=== PATIENT | male | born 1960 | race Caucasian/White ===

== ENCOUNTER 2017-01-28 08:30 | Day surgery (SDC) | payer BC ==
--- NOTE | 2017-01-14 16:24 | P.GSHP ---
History of Present Illness H&P Date: 01/14/17 Chief Complaint: Rectal bleeding patient with complaints of intermittent rectal bleeding. Denies diarrhea or constipation. Also has some chronic pain at a right angle hernia site. No nausea or vomiting. No known hemorrhoids. No prior colonoscopy. Surgical - Exam Physical exam: General: Well-developed, well-nourished HEENT: Normocephalic, sclerae nonicteric Abdomen: Nontender, nondistended, very small reducible umbilical hernia, mild tenderness right groin but no hernia noted Extremities: No edema Neuro: Alert and oriented Assessment and Plan (1) Rectal bleeding Narrative/Plan: Will proceed with colonoscopy on 714. Risks of bleeding and perforation discussed. Status: Acute
[2017-01-26 11:04] VITALS: BMI 32.5
[2017-01-28 08:50] VITALS: RESP 16; TEMP 97.9
[2017-01-28] MEDS: LACTATED RINGERS 1,000 ML IV SCH ×2 (08:58→09:08)
[2017-01-28] MEDS ORDERED: ONDANSETRON 4 MG/2 ML VIAL IVP STA (09:01)
[2017-01-28] MEDS ORDERED: ONDANSETRON 4 MG/2 ML VIAL IVP ONE (09:03)
[2017-01-28] MEDS ORDERED: fentaNYL (PF) 50 MCG/ML 2 ML AMP ONE (09:10)
[2017-01-28] MEDS ORDERED: MIDAZOLAM 2 MG/2 ML VIAL ONE (09:10)
[2017-01-28] MEDS ORDERED: PROPOFOL 10 MG/ML 20 ML VIAL IV ONE (09:10)
--- NOTE | 2017-01-28 09:32 | P.PCN ---
Date of Procedure: 01/28/17 Preoperative Diagnosis: Postoperative Diagnosis: Procedure(s) Performed: PREOPERATIVE DIAGNOSIS: Rectal bleeding POSTOPERATIVE DIAGNOSIS: Normal colon PROCEDURE: Colonoscopy ANESTHESIA: MAC SURGEON: Sebastian Najera M.D. SPECIMENS: None ENDOSCOPIC PROCEDURE: The patient was placed on the endoscopy table in the left decubitus position. The Olympus colonoscope was inserted into the anus and passed under direct visualization to the base of the cecum. The appendiceal orifice was visualized. From that point the scope was slowly withdrawn inspecting all surfaces carefully. There were no neoplastic inflammatory or polypoid lesions throughout the cecum, ascending, transverse, descending, sigmoid and rectum. Mild tortuosity was noted. There was no diverticulosis noted. Digital rectal examination was normal. The patient was taken to the recovery room in stable condition per anesthesia guidelines. RECOMMENDATIONS: Bello franklin. Follow-up colonoscopy in 10 years Implants: Indications for Procedure: Operative Findings: Description of Procedure:
[2017-01-28 09:49] VITALS: BP 155/89; PULSE 72
== END 2017-01-28 10:11 | disposition home or self-care (01) ==
LOC: ORWHC2ENDO 08:30
PROVIDERS: ATTEND Surgery
DX: K62.5 Hemorrhage of anus and rectum (principal); Q43.8 Other specified congenital malformations of intestine; K42.9 Umbilical hernia without obstruction or gangrene
CPT/HCPCS: 45378; J2250; J2405; J3010; J2704

== ENCOUNTER → 2018-11-16 | Outpatient (CLI) | payer BC ==
--- NOTE | 2018-11-16 16:03 | XR ---
EXAMINATION TYPE: XR chest 2V DATE OF EXAM: 11/16/2018 COMPARISON: None INDICATION: Cough TECHNIQUE: Frontal and lateral views of the chest are obtained. FINDINGS: The heart size is normal. The pulmonary vasculature is normal. The lungs are clear. IMPRESSION: 1. No acute pulmonary process.
== END | disposition home or self-care (01) ==
LOC: RADXRMAIN 13:12
PROVIDERS: ATTEND Family Medicine
DX: R05 Cough (principal)
CPT/HCPCS: 71046

== ENCOUNTER → 2021-01-21 | Outpatient (CLI) | payer BC ==
--- NOTE | 2021-01-22 08:30 | XR ---
EXAMINATION TYPE: XR cervical spine comp DATE OF EXAM: 01/21/2021 COMPARISON: None HISTORY: 60-year-old male with pain TECHNIQUE: 5 views FINDINGS: Mild facet and uncovertebral joint arthropathy. On the right, at this results in moderate bony neurof oraminal narrowing at C3-C4 and mild at C5-C6. No predental space widening or prevertebral soft tissu e swelling. Minimal disc interspace narrowing and disc bulging C6-C7. Alignment is maintained. Normal odontoid view. IMPRESSION: Mild facet and uncovertebral joint arthropathy. Mild degenerative disc disease C6-C7. There appears t o be a moderate bony neuroforaminal narrowing on the right at C3-C4 and mild at C5-C6.
== END | disposition home or self-care (01) ==
LOC: RADXRMAIN 16:32
PROVIDERS: ATTEND Family Medicine
DX: M50.323 Other cervical disc degeneration at C6-C7 level (principal); M47.812 Spondylosis without myelopathy or radiculopathy, cervical region; M99.71 Connective tissue and disc stenosis of intervertebral foramina of cervical region
CPT/HCPCS: 72050

== ENCOUNTER 2021-02-02 12:08 | Day surgery (SDC) | payer BC ==
[2021-01-30 11:07] VITALS: BMI 30.9
[~2021-02-02 12:08] MED LIST: LACTATED RINGERS 1,000 ML IV SCH; LIDOCAINE 1% (10MG/ML) FOR IV START INTRADERMA PRN
[2021-02-02 12:27] VITALS: TEMP 98.1
[2021-02-02] MEDS ORDERED: LIDOCAINE 1% INJ 10MG/ML (20 ML MDV) ONE (12:59)
[2021-02-02] MEDS ORDERED: PROPOFOL 10 MG/ML 20 ML VIAL IV ONE (12:59)
--- NOTE | 2021-02-02 13:05 | P.GSHP ---
History of Present Illness H&P Date: 02/02/21 Chief Complaint: Dysphagia This a 60-year-old male complaints of dysphagia. Patient presents today for EGD. Past Medical History Past Medical History: Hypertension Additional Past Medical History / Comment(s): "pain in stomach,pain and bloating with eating,hard to breath at times",distended abdomen,hard to touch, hx HAD EPISODE OF BLOOD IN STOOL "quite awhile ago" History of Any Multi-Drug Resistant Organisms: None Reported Past Surgical History: Orthopedic Surgery Additional Past Surgical History / Comment(s): HIATAL HERNIA REPAIR,inguianl hernia repair,. ROTATOR CUFF REPAIR BILAT. LT ELBOW SX Past Anesthesia/Blood Transfusion Reactions: No Reported Reaction Smoking Status: Never smoker - Past Family History Mother Family Medical History: No Reported History Medications and Allergies Home Medications Medication Instructions Recorded Confirmed Type Cyanocobalamin (Vitamin B-12) 3,000 mcg PO DAILY 01/30/21 02/02/21 History [Vitamin B-12] Ibuprofen 600 mg PO Q6H PRN 01/30/21 01/30/21 History Losartan Potassium 50 mg PO DAILY 01/30/21 02/02/21 History Multivitamins, Thera [Multivitamin 1 tab PO DAILY 01/30/21 01/30/21 History (formulary)] Tadalafil [Cialis] 20 mg PO DAILY PRN 01/30/21 02/02/21 History Allergies Allergy/AdvReac Type Severity Reaction Status Date / Time bee venom protein (honey bee) Allergy Swelling Verified 01/30/21 10:56 Surgical - Exam Vital Signs Temp Pulse Resp BP Pulse Ox 98.1 F 79 16 161/95 96 02/02/21 12:25 02/02/21 12:25 02/02/21 12:25 02/02/21 12:25 02/02/21 12:25 - General well developed, well nourished, no distress - Eyes PERRL - ENT normal pinna - Neck no masses - Respiratory normal expansion - Cardiovascular Rhythm: regular - Abdomen Abdomen: soft Assessment and Plan Assessment: Dysphagia. We'll perform EGD.
--- NOTE | 2021-02-02 13:12 | P.OP ---
Date of Procedure: 02/02/21 Preoperative Diagnosis: Dysphagia Postoperative Diagnosis: Antral gastritis Procedure(s) Performed: EGD Anesthesia: MAC Surgeon: Ash Ruiz Pathology: other (Antrum) Condition: stable Disposition: PACU Description of Procedure: Patient's placed on the endoscopy table in the lateral position. He received IV sedation. Gastroscope placed oropharynx passed in the esophagus into the stomach. Scope was then placed through the pylorus. The first and second portion of duodenum appeared normal. Scope was then brought back the antrum this was mildly inflamed. A biopsies performed. Scope was unretroflexed and remainder of the stomach appeared normal. There is no significant hiatal hernia. The GE junction was at 38 cm. The distal esophagus. Normal. The proximal esophagus appeared normal. Scope was withdrawn for patient.
[2021-02-02 13:36] VITALS: BP 131/79; PULSE 81; RESP 16
== END 2021-02-02 14:35 | disposition home or self-care (01) ==
LOC: ORWHC2ENDO 12:08
PROVIDERS: ATTEND Surgery
DX: R13.10 Dysphagia, unspecified (principal); K29.50 Unspecified chronic gastritis without bleeding; I10 Essential (primary) hypertension; Z98.890 Other specified postprocedural states; Z79.899 Other long term (current) drug therapy; Z91.030 Bee allergy status
CPT/HCPCS: 88305; 43239; J2001; J2704

== ENCOUNTER → 2021-02-05 | Outpatient (CLI) | payer BC ==
--- NOTE | 2021-02-05 11:13 | FL ---
EXAMINATION TYPE: FL barium swallow DATE OF EXAM: 02/05/2021 CLINICAL HISTORY: Dysphasia, back pain TECHNIQUE: A double contrast esophagram is performed utilizing air and barium. A total of 51 second s of fluoroscopic time was utilized during procedure and 52 images obtained. COMPARISON: None FINDINGS: There is delayed emptying of the esophagus into the stomach. No evidence of hiatal hernia o r stricture noted. No significant gastroesophageal reflux was seen during real time performance of th is study. IMPRESSION: There is delayed emptying of barium from the esophagus into the stomach without definite obstruction seen.
== END | disposition home or self-care (01) ==
LOC: RADUSWWP 09:00
PROVIDERS: ATTEND Surgery
DX: K30 Functional dyspepsia (principal)
CPT/HCPCS: 74220

== ENCOUNTER 2024-04-03 08:01 | Day surgery (SDC) | payer BC ==
[2024-04-02 10:12] VITALS: BMI 32.5
[2024-04-03 08:31] VITALS: TEMP 97.8
[2024-04-03] MEDS: LACTATED RINGERS 1,000 ML IV SCH (08:38)
[2024-04-03] MEDS: LACTATED RINGERS 1,000 ML IV ONE (08:40)
[2024-04-03] MEDS ORDERED: PROPOFOL 10 MG/ML 20 ML VIAL IV ONE (09:18)
[2024-04-03] MEDS ORDERED: LIDOCAINE 1% INJ 10MG/ML (20 ML MDV) ONE (09:18)
--- NOTE | 2024-04-03 09:40 | P.PCN ---
Date of Procedure: 04/03/24 Procedure(s) Performed: PREOPERATIVE DIAGNOSIS: Epigastric pain, bloating, screening POSTOPERATIVE DIAGNOSIS: Mild gastritis, normal colon PROCEDURE: 1. EGD with biopsy 2. Colonoscopy ANESTHESIA: MAC SURGEON: Sebastian Najera M.D. SPECIMENS: Antrum ENDOSCOPIC PROCEDURE: The patient was on the endoscopy table in the left decubitus position. The Olympus gastroscope was inserted into the oropharynx and passed under direct visualization to the region of the third portion of the duodenum. From that point the scope was slowly withdrawn inspecting all surfaces carefully. There were no neoplastic inflammatory or polypoid lesions throughout the duodenum. The pylorus was widely patent. The stomach was carefully inspected. There was mild gastritis present. A biopsy of the antrum took place to rule out H. pylori. Retroflexion revealed a normal Ariel plication. There was no visible hiatal hernia. The esophagus was then carefully examined. There were no neoplastic inflammatory or polypoid lesions throughout the visualized esophagus. The patient was kept on the endoscopy table in the left decubitus position. The Olympus colonoscope was inserted into the anus and passed under direct visualization to the base of the cecum. The appendiceal orifice was visualized. From that point the scope was slowly withdrawn inspecting all surfaces carefully. There were no neoplastic inflammatory or polypoid lesions throughout the cecum, ascending, transverse, descending, sigmoid and rectum. There was no visible diverticulosis noted. Digital rectal examination was normal. The patient was taken to the recovery room in stable condition per anesthesia guidelines. RECOMMENDATIONS: Resume diet. Recommend CT abdomen pelvis given patient's complaints of ongoing abdominal pain. Certainly much of his symptoms could be related to gas bloat syndrome post Ariel.
[2024-04-03 10:36] VITALS: BP 129/85; PULSE 63; RESP 18
== END 2024-04-03 10:50 ==
LOC: ORWHC2ENDO 08:01
PROVIDERS: ATTEND Surgery
DX: Z12.11 Encounter for screening for malignant neoplasm of colon (principal); K31.9 Disease of stomach and duodenum, unspecified; K29.70 Gastritis, unspecified, without bleeding; I10 Essential (primary) hypertension; Z79.899 Other long term (current) drug therapy
CPT/HCPCS: 43239; 45378; 88305

== ENCOUNTER → 2024-05-01 | Outpatient (CLI) | payer BC | END | disposition home or self-care (01) | LOC: LABPAT 14:33 | PROVIDERS: ATTEND Orthopaedic Surgery Orthopaedic Surgery of the Spine | CPT/HCPCS: 86850; 86900; 86901; 87070 ==

== ENCOUNTER 2024-05-07 05:43 | Day surgery (SDC) | payer BC ==
[2024-05-01 09:36] VITALS: BMI 32.5
[~2024-05-07 05:43] MED LIST changes: -LACTATED RINGERS 1,000 ML IV SCH; +ceFAZolin 1,000 MG in SODIUM CHLORIDE 0.9% IRRIGATIO 1,000 ML IRRIGATION PRN
[2024-05-07] MEDS ORDERED: HYDROmorphone 0.5 MG/0.5 ML SYRINGE IVP PRN ×2 (07:00→10:32)
[2024-05-07] MEDS: ONDANSETRON 4 MG/2 ML VIAL IVP ONE (07:02)
[2024-05-07] MEDS: LACTATED RINGERS 1,000 ML IV SCH (07:03)
[2024-05-07] MEDS: IV FLUID CONTINUATION 1,000 ML IV ONE (07:05)
[2024-05-07] MEDS ORDERED: SUCCINYLCHOLINE CHLORIDE 200 MG/10 ML VIAL IV ONE (07:25)
[2024-05-07] MEDS ORDERED: GLYCOPYRROLATE 0.2 MG/ML 2 ML VIAL ONE (07:25)
[2024-05-07] MEDS ORDERED: HYDROmorphone (PF) 1 MG/ML ONE (07:25)
[2024-05-07] MEDS ORDERED: ROCURONIUM 10 MG/ML (5 ML VIAL) IV ONE (07:25)
[2024-05-07] MEDS ORDERED: PROPOFOL 10 MG/ML 20 ML VIAL IV ONE (07:25)
[2024-05-07] MEDS ORDERED: ePHEDrine 50 MG/ML 1 ML VIAL ONE (07:25)
[2024-05-07] MEDS ORDERED: NEOSTIGMINE 1 MG/ML 10 ML VIAL ONE (07:25)
[2024-05-07] MEDS ORDERED: PHENYLEPHRINE 10 MG/ML VIAL ONE (07:25)
[2024-05-07] MEDS ORDERED: MIDAZOLAM 2 MG/2 ML VIAL ONE (07:25)
[2024-05-07] MEDS ORDERED: LIDOCAINE 1% INJ 10MG/ML (20 ML MDV) ONE (07:25)
[2024-05-07] MEDS ORDERED: fentaNYL (PF) 50 MCG/ML 2 ML AMP ONE (07:25)
[2024-05-07] MEDS ORDERED: WATER FOR INJECTION, STERILE 10 ML VIAL IV ONE (07:25)
[2024-05-07] MEDS: LACTATED RINGERS 1,000 ML IV ONE ×2 (08:00→09:45)
[2024-05-07] MEDS: LIDOCAINE 1%-EPI 1:100,000 20 ML VIAL SQ ONE (08:01)
[2024-05-07] MEDS: THROMBIN (BOVINE) 5,000 UNIT VIAL TOPICAL ONE (08:12)
[2024-05-07] MEDS ORDERED: BENZOCAINE/MENTHOL LOZENG 1 EACH LOZENGE MUCOUS MEM PRN (10:32)
[2024-05-07] MEDS ORDERED: ONDANSETRON 4 MG/2 ML VIAL IVP PRN (10:32)
[2024-05-07] MEDS ORDERED: CYCLOBENZAPRINE 10 MG TAB PO PRN (10:32)
[2024-05-07] MEDS ORDERED: HYDROmorphone 1 MG/ML 1 ML SYRINGE IVP PRN (10:32)
[2024-05-07] MEDS ORDERED: SENNOSIDES-DOCUSATE SODIUM 1 EACH TAB PO PRN (10:32)
--- NOTE | 2024-05-07 10:39 | P.OP ---
Date of Procedure: 05/07/24 Preoperative Diagnosis: Severe spinal stenosis L4-5, facet arthrosis L4-5, lower extremity colopathy, neurogenic claudication, degenerative disc disease L4-5 Postoperative Diagnosis: Same Anesthesia: GETA Pathology: none sent Condition: stable Disposition: PACU Description of Procedure: DESCRIPTION OF PROCEDURE(S): BRIEF OPERATIVE NOTE Preoperative Diagnosis: Severe spinal stenosis L4-5, facet arthrosis L4-5, lower extremity colopathy, neurogenic claudication, degenerative disc disease L4-5 Postoperative Diagnosis: Same Procedure: Laminectomy and decompression L4-[address] navigation aided Minimally invasive Posterior lateral decompression and facet fusion L4-5 Minimally invasive Transforaminal lumbar interbody fusion for a 360 fusion L4-5 Discectomy for decompression L4-5 Placement of interbody graft L4-5 Use of computer navigation for fusion Local autogenous bone grafting Aspiration of bone marrow from the vertebral body pedicle Use of bone graft extenders Surgeon: Dr. Rodas Plate Keeper: Murray FAN who is present throughout the entire the case persistence during positioning, dissection, exposure, visualization, and all crucial elements of the case as well as closure. Anesthesia: General anesthesia per Dr. Sargent Estimated blood loss: Approximately 150 mL Complications: None apparent Components implanted: K2M minimally invasive Darling pedicle screw system withscrews measuring 6.5 mm in diameter to rods one [place] interbody cage with 10 mL of osteo amp bio4 bone graft substitute and 30 mL of the BX bone fibers to supplement the local autogenous bone graft and bone marrow aspirate Disposition: To recovery room in good stable condition. OPERATIVE INDICATIONS The patient has had severe issues at their lower extremity in her lower back over the past several years with significant worsening over the past several months. Over the past few months the patient had pain at their back and their lower extremities. The patient is having severe radicular symptoms at their lower extremity with weakness. The patient is having significant pain in their back. They are unable to obtain any comfort. We did aggressive conservative treatment with medications therapy and interventional pain management however thery were not having any relief. The patient has been through conservative treatment. With the amount of stenosis and facet arthrosis seen on imaging that correlated with the patient's symptoms, there is a high likelihood that decompression alone would create iatrogenic instability with high risk of recurrent stenosis. I felt that his best option would be for decompression with stabilization via fusion at L4-5. We discussed various treatment options including surgery, and the patient wishes to proceed with surgery We discussed the risk, patient's alternatives and benefits of surgery including but not limited to, risk of bleeding risk of infection, risk of need for further surgery, risk of decreased, loss of motion, muscle function, malunion nonunion, hardware failure, nerve damage, paralysis, heart attack, blindness and . They understood issues with the current pandemic and the possibility of exposure. OPERATIVE SUMMARY After discussing all the risks, patient alternatives and benefits at length, the patient elected to proceed with surgical intervention, signed informed consent, and presented for their procedure. The patient was seen and examined in the preoperative holding area and the surgical site was marked. The patient was given antibiotics and brought to the operating room. The patient was sedated and intubated by anesthesia in standard fashion. The patient was positioned on to the operating room table in a prone position on the appropriate frame which was well-padded and well molded. We were careful to pad any bony prominences and pressure points. We were careful to maintain the patient's cervical spine and good neutral alignment and position throughout. The patient was prepped and draped in a normal standard fashion. An appropriate timeout and keystone protocol performed. We were able to proceed with the surgery. The local wound area was infiltrated with local anesthetic. Over the right iliac crest I was able to make small stab incisions and establish a guidepin screw fixation to the iliac crest 2. I was able place the computer referencing device over the guidepins to establish an appropriate reference point for the Ziem CT navigation. We then were able to place patient in an appropriate drape and do a navigation spin for visualization and 3-D reconstruction of the lumbar spine. I was able utilize C-arm guidance and navigation to establish appropriate position over the pedicles bilaterally at the appropriate levels at L4-5. With the appropriate levels confirmed was able to make small incisions over the appropriate pedicle sites bilaterally at L4-5. Utilizing the computer navigation device I was able to establish bony landmarks at the right iliac crest for a bony reference point for the navigation device. I was able to establish a Jamshidi needle over the lateral aspect of the pedicle and advanced the trocar into the pedicle being careful not to breech superiorly inferiorly medially or laterally using computer navigation device. Position was confirmed regularly with AP and lateral images on C-arm and with the computer navigation device at the appropriate levels bilaterally at L4 and L5. I was able to establish the trocar into the pedicle appropriately into the posterior aspect of the vertebral body bilaterally at the appropriate levels. This was done at each of the pedicle positions and each of the vertebrae. At the superior vertebrae I was able to take approximately 15 mL of bone aspiration for use later in the case to supplement the allograft and autograft bone. I was able place the guidewire into the trocar and into the vertebral body appropriately under C-arm guidance. Dissection was taken down over the wire to the appropriate starting position for the screw placed. The appropriate length screw was chosen, threaded over the guidewire and screwed appropriately into the pedicle and vertebral body under C-arm guidance in excellent alignment and position with good bony purchase. This is done at each of the screw sites at the appropriate levels at L4 and L5. With the screws intact I extended the incision to connect the screw hole sites on the left. I dissected down to establish access over the pars and lamina to the base of the spinous process. I was able to expose the facet joint. The capsule the facet was taken down and showed some facet arthrosis at the joint. I was able to use a combination of curettes and Kerrison rongeurs and a high- speed drill to take down the facet joint and do a facetectomy. I was able get excellent foraminal decompression and central decompression with undermining across midline to perform a laminectomy centrally and contralaterally at L4-5. As able get good central decompression. The ligamentum flavum was taken down to further decompress centrally and at bilateral neural foramen. I was able to expose the disc space and visualize the traversing nerve root. Note was made of some disc protrusion and disc herniation that was abutting the traversing nerve root at the level causing further compression of the nerve root. I was able to establish a annulotomy at the appropriate level protecting soft tissue and neural structures. Note was made of some disc desiccation at the disc. I performed a complete discectomy with accommodation of curettes and rasps and scrapers. I was able get good endplate preparation at the disc space. I sized for the appropriate size interbody spacer protecting the soft tissue and neural structures. The wound was copiously irrigated and suctioned dry. There is no evidence of any dural tear or leak. I was able to pack the disc space with local autogenous bone graft as well as a small amount of bone graft which was also placed into the interbody cage itself. Protecting the soft tissue structures and neural structures I was able place the interbody cage in good alignment and good position with good fit and fill at the interbody space. Position was confirmed with C-arm guidance. Good hemostasis maintained. There is no evidence of any dural tear or leak. The wound was irrigated and suctioned dry. With the hardware intact, intraoperative C-arm imaging was again taken which showed good alignment and position of the hardware at the appropriate levels at L4-5. We were then able to measure, contour and place the rods and appropriate hardware bilaterally. I was able to place capcrews, tighten them down, and torque them with the torque screwdriver appropriately. With this intact I was able to place the local autogenous bone graft with additional bone graft enhancer as necessary into the posterior lateral gutters over the decorticated transverse processes and facet joints on the contralateral side. The remainder of the bone graft was placed over the facet joint on the contralateral side after taking down the facet joint capsule. With the bone graft intact, a stable construct, and good decompression at the appropriate levels, we were able to proceed with closure. Good hemostasis was maintained. There is no evidence of dural tear or leak. The fascia was closed for a watertight closure. he subcuticular tissue was closed with absorbable suture. The wound was cleaned and dried and dressed with the appropriate dressing. The drapes were broken down. The patient was gently rolled back onto their hospital bed being careful to maintain their cervical spine and good neutral alignment and position. They were woken up by anesthesia, extubated, and brought to the recovery room in good stable condition. The patient will be admitted to the hospital for appropriate postoperative care, medical management and monitoring. We will continue to follow them closely about the postoperative course.
--- NOTE | 2024-05-07 10:47 | FL ---
EXAMINATION TYPE: FL guidance operating room, XR lumbar spine 2 or 3V DATE OF EXAM: 05/07/2024 10:14 AM COMPARISON: Pre Operative Images if available both CT/MRI or plain film CLINICAL INDICATION: Male, 63 years old with history of LUMBAR FUSION; TECHNIQUE: FL guidance operating room, XR lumbar spine 2 or 3V, multiple fluoroscopic images provided for procedure. Total fluoroscopy time: 23 seconds Total submitted images to PACS: 5 DAP: [id number] mGym2 Gycm2 uGym2 cGycm2 or equivalent. FINDINGS: Fluoroscopic images during internal fixation/arthroplasty demonstrate fixation hardware in appropriat e position. Hardware appears intact. No immediate complication identified. IMPRESSION: 1. No evidence for intraoperative complication. 2. Please see the operative/procedural note for further details. [facility], , 05/07/2024 10:44 AM
[2024-05-07] MEDS: HYDROcodone/APAP 5-325MG 1 EACH TAB PO PRN (17:43)
[2024-05-07] MEDS: SODIUM CHLORIDE 0.9% 1,000 ML IV SCH (21:20)
[2024-05-08 08:55] LABS: Basophils # (A) 0.02 X 10*3/uL (0.00-0.10); Basophils % (A) 0.2 %; Eosinophils # (A) 0.03 X 10*3/uL (0.04-0.35); Eosinophils % (A) 0.3 %; HCT 39.7 % (39.6-50.0); HGB 13.9 g/dL (13.0-17.0); Lymphocytes # (A) 0.76 X 10*3/uL (0.90-5.00); Lymphocytes % (A) 6.7 %; MCV 88.6 FL (80.0-97.0); Mean Platelet Volume 10.6 FL (9.5-12.2); Monocytes % (A) 7.9 %; NRBC Per 100 WBC 0 X 10*3/uL (0.00-0.01); Neutrophils # (A) 9.64 X 10*3/uL (1.80-7.70); Neutrophils % (A) 84.5 %; Platelet Count 185 X 10*3/uL (140-440); RBC 4.48 X 10*6/uL (4.40-5.60); RDW 12.6 % (11.5-14.5)
[2024-05-08] MEDS: LOSARTAN 50 MG TAB PO SCH (10:29)
[2024-05-08] MEDS: SENNOSIDES-DOCUSATE SODIUM 1 EACH TAB PO SCH (10:30)
[2024-05-08 10:45] LABS: BUN/Creat Ratio 12.91 Ratio (12.00-20.00); Blood Urea Nitrogen 14.2 mg/dL (9.0-27.0); Calcium 8.7 mg/dL (8.7-10.3); Carbon Dioxide 21.8 mmol/L (21.6-31.8); Chloride 100 mmol/L (96-109); Glucose 134 mg/dL (70-110); Potassium 3.9 mmol/L (3.5-5.5); Sodium 135 mmol/L (135-145)
[2024-05-08 14:57] VITALS: RESP 18
[2024-05-08] MEDS: ACETAMINOPHEN TAB 500 MG TAB PO PRN (15:27)
--- NOTE | 2024-05-08 20:06 | P.CONS ---
History of Present Illness - Reason for Consult Consult date: 05/08/24 - Chief Complaint Consult for medical management post lumbar laminectomy and fusion L4-L5 - History of Present Illness . This a pleasant 63-year-old white male who was admitted and underwent elective surgery for fusion of the lumbar spine L4-L5. Patient has been having progressive problems with lumbar degenerative disc disease neurogenic claudication spinal stenosis of L5 L4 area he is seen today postoperatively he denies any shortness of breath cough congestion chest pain dizziness nausea vomiting fever. His pain is minimum and he is moving freely about his room. Review of Systems GENERAL: Patient denies fever. Denies chills. EYES: Denies blurred vision. Denies vision changes. Denies eye pain. EARS, NOSE, MOUTH, & THROAT: Denies headache. Denies sore throat. Denies ear pain. RESPIRATORY: Denies cough. Denies shortness of breath. Denies sputum production. Denies hemoptysis. CARDIOVASCULAR: Denies chest pain or pressure. Denies palpitations. Denies arrhythmias. GASTROINTESTINAL: Denies abdominal pain. Denies diarrhea. Denies constipation. Denies nausea. Denies vomiting. Denies heartburn. Denies blood in the stool. GENITOURINARY: Denies urinary frequency. Denies burning. Denies dysuria. Denies cloudy urine. Denies blood in the urine. MUSCULOSKELETAL: Denies myalgias. Denies joint swelling. Denies decreased range of motion beyond patients baseline. INTEGUMENTARY: Denies pruitis. Denies rash. PSYCHIATRIC: Denies suicidal or homicial ideations. ENDOCRINE: Denies weight change. Denies polydipsia. Denies polyuria. HEMATOLOGIC: Denies bleeding disorders. Past Medical History Past Medical History: Hypertension Additional Past Medical History / Comment(s): "pain in stomach,pain and bloating with eating,hard to breath at times",distended abdomen,hard to touch, hx HAD EPISODE OF BLOOD IN STOOL "quite awhile ago" History of Any Multi-Drug Resistant Organisms: None Reported Past Surgical History: Orthopedic Surgery Additional Past Surgical History / Comment(s): HIATAL HERNIA REPAIR,inguianl hernia repair, colonoscopy. ROTATOR CUFF REPAIR BILAT. LT ELBOW SX Past Anesthesia/Blood Transfusion Reactions: No Reported Reaction Additional Past Anesthesia/Blood Transfusion Reaction / Comm: no blood transfusi on Past Psychological History: No Psychological Hx Reported Smoking Status: Never smoker Past Alcohol Use History: None Reported Past Drug Use History: None Reported - Past Family History Mother Family Medical History: No Reported History Medications and Allergies Home Medications Medication Instructions Recorded Confirmed Type Ibuprofen 600 mg PO Q6H PRN 01/30/21 05/01/24 History Losartan Potassium 50 mg PO DAILY 01/30/21 05/07/24 History tadalafiL [Cialis] 20 mg PO DAILY PRN 01/30/21 05/01/24 History Allergies Allergy/AdvReac Type Severity Reaction Status Date / Time No Known Allergies Allergy Verified 05/07/24 06:22 Physical Exam Vitals: Vital Signs Temp Pulse Pulse Resp BP BP Pulse Ox 05/08/24 16:00 100.7 F H 05/08/24 14:22 100.8 F H 98 18 155/89 98 05/08/24 07:35 125/71 05/08/24 07:25 99/63 05/08/24 07:02 98.5 F 94 17 122/80 93 L 05/08/24 01:01 99.0 F 98 17 142/80 95 05/07/24 19:51 99.2 F 83 152/91 98 Intake and Output 05/08/24 05/08/24 05/08/24 06:59 14:59 22:59 Intake Total 1080 600 Output Total 1050 Balance 30 600 Intake: Intake, IV Titration 600 Amount Sodium Chloride 0.9% 1, 600 000 ml @ 75 mls/hr IV . [id number] SHERRIE Rx#:[id number] Oral 1080 Output: Urine 1050 Other: # Voids 3 GENERAL: This is a -year-old in no apparent distress at the time of examination. Pleasant and cooperative. HEENT: Head is atraumatic, normocephalic. Pupils are equal, round, and reactive to light. Sclerae anicteric. Conjunctivae are clear. Mucus membranes of the mouth are moist. Neck is supple. RESPIRATORY: Clear to auscultation. No wheezes, rales, or rhonchi. No use of accessory muscles. CARDIOVASCULAR: Regular rate and rhythm. S1 and S2 noted. No systolic or diastolic murmur auscultated. No JVD noted. No S3 or S4 noted. GASTROINTESTINAL: No distention noted. Abdomen soft and round. Normal active bowel sounds auscultated x 4 quadrants. No pain or tenderness noted upon palpation. INTEGUMENTARY: No cyanosis. No jaundice. No rashes noted. No cellulitis noted. EXTREMITIES: 2+ peripheral pulses. No evidence of peripheral edema. No calf tenderness noted. NEUROLOGIC: Cranial nerves II-XII intact. PSYCHIATRIC: Awake, alert, and oriented X 3. Appropriate affect. Intact judgemen t and insight. Results CBC & Chem 7: 05/08/24 03:01 05/08/24 03:01 Labs: Abnormal Lab Results - Last 24 Hours (Table) 05/08/24 05/08/24 Range/Units 03:01 03:01 WBC 11.40 H (4.50-10.00) X 10*3/uL Immature Gran # 0.05 H (0.00-0.04) X 10*3/uL Neutrophils # 9.64 H (1.80-7.70) X 10*3/uL Lymphocytes # 0.76 L (0.90-5.00) X 10*3/uL Eosinophils # 0.03 L (0.04-0.35) X 10*3/uL Anion Gap 13.20 H (4.00-12.00) mmol/L Glucose 134 H (70-110) mg/dL Assessment and Plan (1) Lumbar adjacent segment disease with spondylolisthesis Current Visit: Yes Status: Acute Code(s): M51.369 - OTH INTVRT DISC DEGEN, LUM RGN W/O LUM BCK OR LW EXTRM PAIN; M43.16 - SPONDYLOLISTHESIS, LUMBAR REGION SNOMED Code(s): 708738007 (2) Hypertension Current Visit: Yes Status: Acute Code(s): I10 - ESSENTIAL (PRIMARY) HYPERTENSION SNOMED Code(s): 58784609 Plan: Postoperative course has been uneventful he is using incentive spirometry DVT prophylaxis early ambulation wound care and postoperative care by Dr. Connolly thank you for allowing me to participate in this patient's care patient is cleared for discharge medically follow-up in the office 2 weeks as needed.
[2024-05-09 07:46] VITALS: BP 140/95; PULSE 98; TEMP 98.2
--- NOTE | 2024-05-09 10:45 | P.DS ---
Providers Date of admission: 05/08/2024 Expected date of discharge: 05/09/24 Attending physician: Prerna Rodas Consults: 05/07/24 10:32 Consult Physician Routine Consulting Provider: Darci Turcios Reason/Comments: Medical management Do you want consulting provider notified?: Yes Primary care physician: Darci Turcios - Discharge Diagnosis(es) (1) Spinal stenosis at L4-L5 level Current Visit: Yes Status: Acute (2) Lumbar facet arthropathy Current Visit: Yes Status: Acute (3) Lumbar degenerative disc disease Current Visit: Yes Status: Acute (4) Neurogenic claudication Current Visit: Yes Status: Acute (5) Radiculopathy with lower extremity symptoms Current Visit: Yes Status: Acute (6) Hypertension Current Visit: Yes Status: Acute Hospital Course: This is a pleasant 63-year-old male who presented with L4-5 severe spinal stenosis, L4-5 with facet arthrosis, L4-5 degenerative disc disease, lower extremity radiculopathy, and neurogenic claudication who failed outpatient conservative therapy. He was admitted for an L4-5 minimally invasive posterior lateral decompression and fusion with transforaminal lumbar interbody fusion. The patient tolerated the procedure well and did well postoperatively. His pain has been well-controlled with oral medications. He is not currently complain of any significant low back pain or lower extremity radiculopathy. He is ambulating with assistance of a walker. He is very happy with his progress postoperatively. He feels his symptoms are stable. He feels ready for discharge today. Condition on day of discharge stable. Patient will be discharged home. Patient was cleared preoperatively for surgery by Dr. Turcios. Patient currently denies any nausea, vomiting, fever, or chills. Patient is eating and voiding freely without difficulty. Patient may shower Optifoam dressing intact. Patient may remove Optifoam dressing in 3 days and shower without a dressing at that time. Patient should refrain from driving until at least after their first follow-up appointment in the office. Patient should avoid excessive bending, lifting, and twisting; no lifting greater than 10 pounds. Patient does have a blister just above his dressing sites over the lumbar spine which is closed and has not opened. If this blister does open, he may perform daily dressing changes as needed. Patient was cleared for discharge yesterday by medicine. He did have a low- grade temperature yesterday afternoon. This has completely subsided. His current temperature is 98.2 F. He denies fever or chills. MAPS has been reviewed today, 05/09/2024, with an Overall Overdose Risk Score of 270. An "Opiod Start Talking" Form has been signed and placed in the patient's chart. A prescription has been written for hydrocodone 5 mg / 325 mg, 1 tab, every 6 hours, as needed for acute pain, dispense #28. Prescription for cyclobenzaprine, 10 mg, 1 tab, every 8 hours, as needed for muscle spasm, dispense #60, and Senokot-S, 1 tab, twice daily, as needed for constipation, dispense #60 are sent to the [facility] pharmacy located within [facility] per request of the patient. Patient's other medical diagnoses include hypertension. Physical Exam on day of discharge: Patient is awake, alert, and oriented 3 Vital signs stable Good chest excursion with deep inspiration and expiration Patient is able to stand at the bedside without significant difficulty independently Plantarflexion and dorsiflexion positive sustained bilateral lower extremities There is a blister above his surgical dressing to the lumbar spine filled with fluid which is not open and is not draining Incisions are clean, dry, and intact; no erythema, purulence, or signs of infection Optifoam dressings are intact Procedures: L4-5 minimally invasive posterior lateral decompression and fusion with transforaminal lumbar interbody fusion Patient Condition at Discharge: Stable Plan - Discharge Summary Discharge Rx Participant: Yes New Discharge Prescriptions: New Cyclobenzaprine [Flexeril] 10 mg PO TID PRN #60 tab PRN Reason: Muscle Spasm HYDROcodone/APAP 5-325MG [Mcdonald 5] 1 each PO Q6HR PRN #28 tab PRN Reason: Pain Sennosides-Docusate Sodium [Senokot-S] 1 tab PO BID PRN #60 tablet PRN Reason: Constipation No Action tadalafiL [Cialis] 20 mg PO DAILY PRN PRN Reason: E.D. Losartan Potassium 50 mg PO DAILY Ibuprofen 600 mg PO Q6H PRN PRN Reason: Pain Discharge Medication List Ibuprofen 600 mg PO Q6H PRN 01/30/21 [History] Losartan Potassium 50 mg PO DAILY 01/30/21 [History] tadalafiL [Cialis] 20 mg PO DAILY PRN 01/30/21 [History] Cyclobenzaprine [Flexeril] 10 mg PO TID PRN #60 tab 05/09/24 [Rx] HYDROcodone/APAP 5-325MG [Mcdonald 5] 1 each PO Q6HR PRN #28 tab 05/09/24 [Rx] Sennosides-Docusate Sodium [Senokot-S] 1 tab PO BID PRN #60 tablet 05/09/24 [Rx] Follow up Appointment(s)/Referral(s): Prerna Rodas DO [Doctor of Osteopathic Medicine] - 05/22/24 8:45 am Activity/Diet/Wound Care/Special Instructions: 1. Patient may shower with Optifoam dressing intact. 2. Patient may remove Optifoam dressing in 3 days and shower without a dressing at that time. 3. Patient may apply dressing as needed if blister opens superior to the dressing sites. 4. Patient should refrain from driving until at least after their first follow- up appointment in the office. 5. Patient should avoid excessive bending, twisting, lifting; avoid overhead lifting; no lifting greater than 10 pounds 6. Take medications as prescribed 7. Patient should avoid anti-inflammatory medications over the next 6 weeks postoperatively 8. Patient may utilize walker to aid in ambulation as needed 9. Do not soak in tub Discharge Disposition: HOME SELF-CARE
== END 2024-05-09 13:25 | disposition home or self-care (01) ==
LOC: OR 05:43 → 4SSUR 10:14 → OR 05-09 13:25
PROVIDERS: ATTEND Orthopaedic Surgery Orthopaedic Surgery of the Spine
DX: M48.062 Spinal stenosis, lumbar region with neurogenic claudication (principal); I10 Essential (primary) hypertension
CPT/HCPCS: 22633; 20936; 63052; 97161; 80048; 85025; 72100; C1713 ×2; C1762; J2250; J0330; J2710; J0690 ×2; J2405; J2003; J3010; J1171; J2704; J2371; J1596